=== PATIENT | male | born 1985 | race Caucasian/White ===

== ENCOUNTER 2016-03-25 12:49 | Emergency (ER) | payer BC ==
[2016-03-25] MEDS ORDERED: Ketorolac INJ* 60 MG/2 ML VIAL IM ONE (14:05)
[2016-03-25 15:01] VITALS: BP 156/94
--- NOTE | 2016-04-15 17:06 | ED ---
Back Pain - HPI Summary HPI Summary: Patient presents with low back pain after shoveling snow yesterday. He denies previous injury, N/T, incontinence of urine or stool. He has tried ibuprofen and heat without relief. No CP, SOB or OSORIO. - History of Current Complaint Chief Complaint: EDBackInjuryPain Stated Complaint: BACK PAIN Time Seen by Provider: 03/25/16 13:12 Hx Obtained From: Patient Onset/Duration: Gradual Onset Onset/Duration: Started Days Ago Timing: Constant Back Pain Location: Is Discrete @ - lwo back Severity Initially: Mild Severity Currently: Severe Pain Intensity: 7 Pain Scale Used: 0-10 Numeric Character: Aching, Stiffness Aggravating Symptom(s): Movement Alleviating Symptom(s): Nothing Associated Signs And Symptoms: Positive: Pain with Weight Bearing - Allergies/Home Medications Allergies/Adverse Reactions: Allergies Allergy/AdvReac Type Severity Reaction Status Date / Time No Known Drug Allergy Allergy Unknown Verified 03/25/16 14:52 Reaction Details PMH/Surg Hx/FS Hx/Imm Hx Previously Healthy: Yes Infectious Disease History: No Infectious Disease History: Denies: Traveled Outside the [place] in Last 30 Days - Family History Known Family History: Positive: None - Social History Occupation: Employed Full-time Lives: With Family Alcohol Use: Occasionally Substance Use Type: Reports: None Smoking Status (MU): Former Smoker Review of Systems Negative: Fever Negative: Chest Pain Negative: Shortness Of Breath Positive: Myalgia. Negative: Edema Negative: Bruising Negative: Weakness, Paresthesia, Numbness All Other Systems Reviewed And Are Negative: Yes Physical Exam Triage Information Reviewed: Yes Vital Signs On Initial Exam: Initial Vitals Temp Pulse Resp BP Pulse Ox 98.6 F 76 20 154/87 97 03/25/16 12:51 03/25/16 12:51 03/25/16 12:51 03/25/16 12:51 03/25/16 12:51 Vital Signs Reviewed: Yes Appearance: Positive: Well-Appearing, Well-Nourished, Pain Distress Skin: Positive: Warm, Skin Color Reflects Adequate Perfusion, Dry, Soft Head/Face: Positive: Normal Head/Face Inspection Eyes: Positive: EOMI, OBDULIA, Conjunctiva Clear ENT: Positive: Hearing grossly normal Respiratory/Lung Sounds: Positive: Breath Sounds Present Cardiovascular: Positive: RRR Abdomen Description: Positive: Nontender, Soft Musculoskeletal: Positive: Limited @ - back flexion, extension and rotation are limited due to pain, Pain @ - TTP right lumbar muscles. Negative: Edema Left, Edema Right Neurological: Positive: Sensory/Motor Intact, Alert, Oriented to Person Place, Time, NV Bundle Intact Distally, Abnormal Gait Psychiatric: Positive: Affect/Mood Appropriate AVPU Assessment: Alert Diagnostics - Vital Signs Vital Signs Temp Pulse Resp BP Pulse Ox 03/25/16 14:58 97.9 F 66 16 156/94 03/25/16 12:51 98.6 F 76 20 154/87 97 - Laboratory Lab Statement: Any lab studies that have been ordered have been reviewed, and results considered in the medical decision making process. Back Pain Course/Dx - Course Course Of Treatment: Patient's pain improved with Toradol. He will be discharged with muscle relaxers and instruction to follow-up with PCP. - Diagnoses Differential Diagnosis/HQI/PQRI: Positive: Aneurysm, Cauda Equina Syndrome, Compressive Cord Syndrome, Fracture, Herniated Disc, Strain, Sprain Provider Diagnoses: Low back strain Discharge - Discharge Plan Condition: Stable Disposition: HOME Prescriptions: Cyclobenzaprine TAB* [Flexeril TAB*] 10 mg PO TID PRN #15 tab PRN Reason: Pain Patient Education Materials: Low Back Strain (ED) Referrals: [facility] [Outside] Additional Instructions: Please begin taking 600mg of ibuprofen tomorrow afternoon, since you had an injection of Toradol today. Use the muscle relaxer to reduce muscle pain and/or spasm. Call the number provided to establish care with a primary care provider for follow-up care. Return to the emergency department if symptoms worsen.
== END 2016-03-25 14:58 | disposition home or self-care (01) ==
LOC: ED 12:49
DX: S39.012A Strain of muscle, fascia and tendon of lower back, initial encounter (principal); X50.9XXA Other and unspecified overexertion or strenuous movements or postures, initial encounter; X50.0XXA Overexertion from strenuous movement or load, initial encounter; Y93.H1 Activity, digging, shoveling and raking; Y92.9 Unspecified place or not applicable; Z87.891 Personal history of nicotine dependence
CPT/HCPCS: 99281; J1885

== ENCOUNTER 2016-11-10 09:35 | Emergency (ER) | payer BC ==
[2016-11-10] MEDS ORDERED: LORazepam TAB(*) 1 MG PO ONE ×2 (10:28→12:17)
[2016-11-10 10:54] LABS: Hematocrit 51 % (42-52); Hemoglobin 17.3 g/dl (14.0-18.0); Mean Corpuscular HGB Conc 34 g/dl (31-36); Mean Corpuscular Hemoglobin 31 pg (27-31); Mean Corpuscular Volume 92 fL (80-94); Mean Platelet Volume 7 um3 (7.4-10.4); Red Blood Count 5.52 10^6/ul (4.0-5.4); Red Cell Distribution Width 13 % (10.5-15); White Blood Count 4.4 10^3/ul (3.5-10.8)
[2016-11-10 11:05] LABS: ALT 24 U/L (7-52); AST 19 U/L (13-39); Albumin 4.6 g/dL (3.2-5.2); Alkaline Phosphatase 48 U/L (34-104); Anion Gap 10 mmol/L (2-11); BUN/Creatinine Ratio 12.8 (8-20); Blood Urea Nitrogen 10 mg/dL (6-24); CO2 Carbon Dioxide 23 mmol/L (22-32); Calcium 9.8 mg/dL (8.6-10.3); Chloride 101 mmol/L (101-111); EGFR African American 151.3 (>60); EGFR Non-African American 117.7 (>60); Globulin 3.3 g/dL (2-4); Glucose 91 mg/dL (70-100); Potassium 3.8 mmol/L (3.5-5.0); Sodium 134 mmol/L (133-145); Total Protein 7.9 g/dL (6.4-8.9)
[2016-11-10 11:47] LABS: Acetaminophen < 15 mcg/mL; Alcohol < 10 mg/dL (<10); Salicylate < 2.50 mg/dL (<30)
[2016-11-10 12:24] LABS: TSH (Thyroid Stimulating Horm) 0.67 mcIU/mL (0.34-5.60)
[2016-11-10 12:32] LABS: Urine Bilirubin Negative (Negative); Urine Glucose Negative (Negative); Urine Nitrite Negative (Negative)
[2016-11-10 12:50] LABS: Benzodiazepine Urine Screen None Detected (None Detect)
[2016-11-10 15:50] VITALS: BP 153/70
--- NOTE | 2016-11-11 07:53 | ED ---
Silvia Carvajal Thomas, scribed for Junior Dwyer MD on 11/10/16 at 1128 . Complex/Multi-Sys Presentation - HPI Summary HPI Summary: The patient is a 30 y/o M who presents to the ED with intermittent lightheadedness and dizziness that began a few days ago but was present when the patient woke up this AM, prompting a visit to the ED. He reports similar episodes of lightheadedness a few months ago; however, his current symptoms are worse in severity than before. He appears anxious and states I cannot calm myself down. He denies recent caffeine intake. He has a Hx of HTN and was told in the last few weeks by his PMD Dr. Becker to lose weight in order to manage his BP. Previously, the patient reports presenting to other emergency departments for this complaint. 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 He is accompanied by a coworker. - History Of Current Complaint Chief Complaint: EDGeneral Time Seen by Provider: 11/10/16 10:10 Hx Obtained From: Patient, Family/Doughmaker - co-worker is in the examination room Onset/Duration: Lasting Days - "a few days", Still Present, Worse Since - this AM Timing: Constant Severity Currently: Moderate Location: Negative Character: Unable To Describe - The patient appears anxious Aggravating Factor(s): None Alleviating Factor(s): None Associated Signs And Symptoms: Positive: Other - Lightheadedness, anxiety Related History: Similar Episode/Diagnosed As: - similar to other episodes of lightheadedness and anxiety - Allergies/Home Medications Allergies/Adverse Reactions: Allergies Allergy/AdvReac Type Severity Reaction Status Date / Time No Known Drug Allergy Allergy Unknown Verified 03/25/16 14:52 Reaction Details PMH/Surg Hx/FS Hx/Imm Hx Previously Healthy: No Endocrine/Hematology History: Denies: Hx Diabetes Cardiovascular History: Reports: Hx Hypertension - Surgical History Surgery Procedure, Year, and Place: Thumb surgery on hand Infectious Disease History: No Infectious Disease History: Denies: Traveled Outside the [place] in Last 30 Days - Family History Known Family History: Positive: Hypertension - Social History 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 Alcohol Use: Occasionally Hx Substance Use: No Substance Use Type: Reports: None Hx Tobacco Use: Yes Smoking Status (MU): Former Smoker Review of Systems Negative: Fever Neurological: Other - Lightheaded Positive: Other - Anxious All Other Systems Reviewed And Are Negative: Yes Physical Exam Triage Information Reviewed: Yes Vital Signs On Initial Exam: Initial Vitals Temp Pulse Resp BP Pulse Ox 97.3 F 88 20 160/106 99 11/10/16 09:45 11/10/16 09:45 11/10/16 09:45 11/10/16 09:45 11/10/16 09:45 Vital Signs Reviewed: Yes Appearance: Positive: Well-Appearing, No Pain Distress Skin: Positive: Warm, Skin Color Reflects Adequate Perfusion, Dry Head/Face: Positive: Normal Head/Face Inspection Eyes: Positive: Normal ENT: Positive: Normal ENT inspection Neck: Positive: Supple, Nontender Respiratory/Lung Sounds: Positive: Clear to Auscultation, Breath Sounds Present Cardiovascular: Positive: RRR Abdomen Description: Positive: Nontender, Soft Bowel Sounds: Positive: Present Musculoskeletal: Positive: Normal Neurological: Positive: Normal Psychiatric: Positive: Anxious - Vicki Coma Scale Coma Scale Total: 15 Diagnostics - Vital Signs Vital Signs Temp Pulse Resp BP Pulse Ox 11/10/16 10:45 20 11/10/16 09:45 97.3 F 88 20 160/106 99 - Laboratory Lab Results: Lab Results 11/10/16 11/10/16 Range/Units 10:39 10:39 WBC 4.4 (3.5-10.8) 10^3/ul RBC 5.52 H (4.0-5.4) 10^6/ul Hgb 17.3 (14.0-18.0) g/dl Hct 51 (42-52) % MCV 92 (80-94) fL MCH 31 (27-31) pg MCHC 34 (31-36) g/dl RDW 13 (10.5-15) % Plt Count 247 (150-450) 10^3/ul MPV 7 L (7.4-10.4) um3 Neut % (Auto) 58.7 (38-83) % Lymph % (Auto) 29.3 (25-47) % [place] % (Auto) 10.0 H (1-9) % Eos % (Auto) 1.1 (0-6) % Baso % (Auto) 0.9 (0-2) % Absolute Neuts (auto) 2.6 (1.5-7.7) 10^3/ul Absolute Lymphs (auto) 1.3 (1.0-4.8) 10^3/ul Absolute Monos (auto) 0.4 (0-0.8) 10^3/ul Absolute Eos (auto) 0.1 (0-0.6) 10^3/ul Absolute Basos (auto) 0 (0-0.2) 10^3/ul Absolute Nucleated RBC 0.01 10^3/ul Nucleated RBC % 0.1 Sodium 134 (133-145) mmol/L Potassium 3.8 (3.5-5.0) mmol/L Chloride 101 (101-111) mmol/L Carbon Dioxide 23 (22-32) mmol/L Anion Gap 10 (2-11) mmol/L BUN 10 (6-24) mg/dL Creatinine 0.78 (0.67-1.17) mg/dL Est GFR ( Amer) 151.3 (>60) Est GFR (Non-Af Amer) 117.7 (>60) BUN/Creatinine Ratio 12.8 (8-20) Glucose 91 (70-100) mg/dL Calcium 9.8 (8.6-10.3) mg/dL Total Bilirubin 1.20 H (0.2-1.0) mg/dL AST 19 (13-39) U/L ALT 24 (7-52) U/L Alkaline Phosphatase 48 (34-104) U/L Total Protein 7.9 (6.4-8.9) g/dL Albumin 4.6 (3.2-5.2) g/dL Globulin 3.3 (2-4) g/dL Albumin/Globulin Ratio 1.4 (1-3) TSH Pending Salicylates Pending Acetaminophen Pending Serum Alcohol Pending Result Diagrams: 11/10/16 10:39 11/10/16 10:39 Lab Statement: Any lab studies that have been ordered have been reviewed, and results considered in the medical decision making process. - EKG 12:48 Cardiac Rate: NL - 73 BPM EKG Interpretation: Sinus rhythm. No STEMI. Complex Multi-Symp Course/Dx Course Of Treatment: Mr. Mejia presented clearly suffering from anxiety which improved with anxiolytics. He requested a [facility] and they spoke with him about outpatient F/U. - Diagnoses Provider Diagnoses: Acute anxiety Discharge - Discharge Plan Condition: Stable Disposition: HOME Prescriptions: hydrOXYzine HCL TAB* [Atarax 25 MG TAB*] 25 mg PO QID PRN #20 tab PRN Reason: Allergy Symptoms Patient Education Materials: Panic Disorder (ED), Anxiety (ED), Panic Attack ( ED) Referrals: Marcos Becker MD [Primary Care Provider] - The documentation as recorded by the Silvia laureano Thomas accurately reflects the service I personally performed and the decisions made by me, Junior Dwyer MD.
== END 2016-11-10 17:53 | disposition home or self-care (01) ==
LOC: ED 09:35
DX: F41.9 Anxiety disorder, unspecified (principal); I10 Essential (primary) hypertension
CPT/HCPCS: 36415; 80053; 80307; 80320; 80329; 81003; 84443; 84484; 85025; 93005; 99284; A9270-GY; G0480

== ENCOUNTER 2017-08-05 08:07 | Emergency (ER) | payer BC ==
--- OUTSIDE RECORDS SUMMARY | 2017-08-05 08:33 | XMS REPORT ---
:1985 External Reference #:[id number] Author Organization [employer] Address [address] [address] Phone [phone] Care Team Providers Name Role Phone Marcos Becker III, MD Primary Care Physician Unavailable Payers Type Date Identification Numbers Payment Provider Subscriber Commercial Policy Number: [id number] [employer] Martinez Mejia PayID: [id number] [address] [address] [place] [address] Problems Date Description Provider Status Onset: 12/24/2016 Anxiety state Marcos Becker M.D. 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 Alprazolam Active Tablets 0.5mg 30tabs / to1 F41.9 Marcos [place] 017 tablet by Rosita, mouth up M.D. to twice a day as needed for anxiety sx Advil Active Capsules 200mg as needed Unknown 000 Sertraline HCL Hx Tablets 25mg 60tabs 1 by mouth F41.9 Marcos [place]aya 017 - every day Rosita, M.DJeannie 018 Hydroxyzine Hx Tablets 25mg 1-2 Unknown HCL 000 - tablets by mouth 017 every 6-8 hours as needed for anxiety. Immunizations CPT Code Status Date Vaccine Lot # [id number] Given 07/13/2017 Tdap - Tetanus/Diptheria/Acellular Pertussis [id number] Vital Signs Date Vital Result Comment 07/13/2017 Height 72 inches 6'0" Weight 248.25 lb Heart Rate 76 /min BP Systolic 118 mmHg BP Diastolic 78 mmHg BMI (Body Mass Index) 33.7 kg/m2 06/06/2017 Height 72 inches 6'0" Weight 244.00 lb Heart Rate 72 /min BP Systolic Sitting 120 mmHg BP Diastolic Sitting 80 mmHg Body Temperature 97.6 F O2 % BldC Oximetry 96 % BMI (Body Mass Index) 33.1 kg/m2 12/24/2016 Height 72 inches 6'0" Weight 235.00 lb Heart Rate 70 /min BP Systolic Sitting 118 mmHg BP Diastolic Sitting 86 mmHg Body Temperature 97.4 F O2 % BldC Oximetry 98 % BMI (Body Mass Index) 31.9 kg/m2 11/23/2016 Weight 230.00 lb Heart Rate 85 /min BP Systolic Sitting 153 mmHg BP Diastolic Sitting 98 mmHg Body Temperature 98.0 F Pain Level 7 headache right now O2 % BldC Oximetry 98 % 06/24/2016 Height 72 inches 6'0" Weight 240.00 lb Heart Rate 78 /min BP Systolic 140 mmHg BP Diastolic 90 mmHg Body Temperature 98.4 F O2 % BldC Oximetry 97 % BMI (Body Mass Index) 32.5 kg/m2 Results Test Date Test Result H/L Range Note Urinalysis Profile 11/10/2016 Urine Color Straw Urine Appearance Clear Urine Specific [place] 1.004 Low 1.010-1.030 Urine pH 8.0 5-9 Urine Urobilinogen Negative Negative Urine Ketones 1+ Negative Urine Protein Negative Negative Urine Leukocytes Negative Negative Urine Blood Negative Negative Urine Nitrite Negative Negative Urine Bilirubin Negative Negative Urine Glucose Negative Negative Urine Drug SCR ED & 11/10/2016 Amphetamine Ur Screen None Detected None Detect Pain Clinic Barbiturates Urine Screen None Detected None Detect Benzodiazepine Urine Screen None Detected None Detect Urine Cannabinoids Screen None Detected None Detect Urine Cocaine Screen None Detected None Detect Urine Opiates Screen None Detected None Detect Urine Phencyclidine Screen None Detected None Detect 1 CBC Auto Diff 11/10/2016 White Blood Count 4.4 10^3/uL 3.5-10.8 Red Blood Count 5.52 10^6/uL High 4.0-5.4 Hemoglobin 17.3 g/dL 14.0-18.0 Hematocrit 51 % 42-52 Mean Corpuscular Volume 92 fL 80-94 Mean Corpuscular Hemoglobin 31 pg 27-31 Mean Corpuscular HGB Conc 34 g/dL 31-36 Red Cell Distribution Width 13 % 10.5-15 Platelet Count 247 10^3/uL 150-450 Mean Platelet Volume 7 um3 Low 7.4-10.4 Abs Neutrophils 2.6 10^3/uL 1.5-7.7 Abs Lymphocytes 1.3 10^3/uL 1.0-4.8 Abs Monocytes 0.4 10^3/uL 0-0.8 Abs Eosinophils 0.1 10^3/uL 0-0.6 Abs Basophils 0 10^3/uL 0-0.2 Abs Nucleated RBC 0.01 10^3/uL Granulocyte % 58.7 % 38-83 Lymphocyte % 29.3 % 25-47 Monocyte % 10.0 % High 1-9 Eosinophil % 1.1 % 0-6 Basophil % 0.9 % 0-2 Nucleated Red Blood Cells % 0.1 Comp Metabolic Panel 11/10/2016 Sodium 134 mmol/L 133-145 Potassium 3.8 mmol/L 3.5-5.0 Chloride 101 mmol/L 101-111 Co2 Carbon Dioxide 23 mmol/L 22-32 Anion Gap 10 mmol/L 2-11 Glucose 91 mg/dL 70-100 Blood Urea Nitrogen 10 mg/dL 6-24 Creatinine 0.78 mg/dL 0.67-1.17 BUN/Creatinine Ratio 12.8 8-20 Calcium 9.8 mg/dL 8.6-10.3 Total Protein 7.9 g/dL 6.4-8.9 Albumin 4.6 g/dL 3.2-5.2 Globulin 3.3 g/dL 2-4 Albumin/Globulin Ratio 1.4 1-3 Total Bilirubin 1.20 mg/dL High 0.2-1.0 Alkaline Phosphatase 48 U/L 34-104 Alt 24 U/L 7-52 Ast 19 U/L 13-39 Egfr Non- 117.7 >60 Egfr 151.3 >60 2 Laboratory test finding 11/10/2016 Acetaminophen < 15 g/mL 3 Alcohol < 10 mg/dL <10 Salicylate < 2.50 mg/dL <30 TSH (Thyroid Stim Horm) 0.67 mcIU/mL 0.34-5.60 Troponin-I (TnI) 0.00 ng/mL <0.04 Comp Metabolic Panel 06/25/2016 Sodium 135 mmol/L 133-145 Potassium 4.4 mmol/L 3.5-5.0 Chloride 103 mmol/L 101-111 Co2 Carbon Dioxide 23 mmol/L 22-32 Anion Gap 9 mmol/L 2-11 Glucose 79 mg/dL 70-100 Blood Urea Nitrogen 9 mg/dL 6-24 Creatinine 0.78 mg/dL 0.67-1.17 BUN/Creatinine Ratio 11.5 8-20 Calcium 9.8 mg/dL 8.6-10.3 Total Protein 7.8 g/dL 6.4-8.9 Albumin 4.8 g/dL 3.2-5.2 Globulin 3.0 g/dL 2-4 Albumin/Globulin Ratio 1.6 1-3 Total Bilirubin 1.40 mg/dL High 0.2-1.0 Alkaline Phosphatase 50 U/L 34-104 Alt 39 U/L 7-52 Ast 26 U/L 13-39 Egfr Non- 117.7 >60 Egfr 151.3 >60 4 Laboratory test finding 06/25/2016 TSH (Thyroid Stim Horm) 1.00 mcIU/mL 0.34-5.60 Lipid Profile 06/25/2016 Triglycerides 84 mg/dL 5 (Trig/Chol/HDL) Cholesterol 203 mg/dL 6 HDL Cholesterol 48.6 mg/dL 7 LDL Cholesterol 138 mg/dL 8 Laboratory test finding 06/25/2016 Magnesium 2.1 mg/dL 1.9-2.7 1 The urine specimen was tested at the listed cutoffs: Drug class test level (ng/mL) Amphetamines 500 Barbiturates 200 Benzodiazepine metabolites 200 Cocaine metabolites 150 Cannabinoids 50 Opiates 300 Pcp 25 Specimen was received without chain of custody. Results should be used for medical purposes only. 2 Because ethnic data is not always readily available, this report includes an eGFR for both -Americans and non- Americans. The National Kidney Disease Education Program (NKDEP) does not endorse the use of the MDRD equation for patients that are not between the ages of 18 and 70, are , have extremes of body size, muscle mass, or nutritional status, or are non- or non-. According to the National Kidney Foundation, irrespective of diagnosis, the stage of the disease is based on the level of kidney function: Stage Description GFR(mL/min/1.73 m(2)) 1 Kidney damage with normal or decreased GFR 90 2 Kidney damage with mild decrease in GFR 60-89 3 Moderate decrease in GFR 30-59 4 Severe decrease in GFR 15-29 5 Kidney failure <15 (or dialysis) 3 Therapeutic concentration: <50 ug/mL Toxic concentration: >120 ug/mL 4 Because ethnic data is not always readily available, this report includes an eGFR for both -Americans and non- Americans. The National Kidney Disease Education Program (NKDEP) does not endorse the use of the MDRD equation for patients that are not between the ages of 18 and 70, are , have extremes of body size, muscle mass, or nutritional status, or are non- or non-. According to the National Kidney Foundation, irrespective of diagnosis, the stage of the disease is based on the level of kidney function: Stage Description GFR(mL/min/1.73 m(2)) 1 Kidney damage with normal or decreased GFR 90 2 Kidney damage with mild decrease in GFR 60-89 3 Moderate decrease in GFR 30-59 4 Severe decrease in GFR 15-29 5 Kidney failure <15 (or dialysis) 5 Desirable <150 Borderline high 150-199 High 200-499 Very High >500 6 Desirable <200 Borderline high 200-239 High >239 7 Low <40 Desirable: 40-60 High: >60 8 Desirable: <100 mg/dL Near Optimal: 100-129 mg/dL Borderline High: 130-159 mg/dL High: 160-189 mg/dL Very High: >189 mg/dL Procedures Date CPT Code Description Status 06/24/2016 22094 EKG Tracing & Interpretation Completed Encounters Type Date Location Provider CPT E/M Dx Office Visit 12/24/2016 9:00a [facility] Marcos Becker, [address]2043 F41.9 - Sukhi Wood R03.0 Office Visit 11/23/2016 3:00p [facility] Marcos Becker, 34592 F41.9 Babatunde Isbell M.D. Office Visit 06/24/2016 2:00p [facility] Marcos Becker, 15298 R42 - Sukhi Wood I47.9 Z13.220 R03.0 Plan of Care Future Appointment(s):01/12/2018 2:20 pm - Marcos Becker M.D. at [facility] - [id number]/06/2018 - Marcos Becker M.D.F41.9 Anxiety disorder, unspecifiedFollow up:annual exam in 6 months or prn
[2017-08-05] MEDS ORDERED: Metoprolol Tartrate IV* 1 MG/ML 5 ML VIAL IV ONE (08:55)
[2017-08-05] MEDS ORDERED: Acetaminophen TAB* 325 MG PO ONE (08:55)
[2017-08-05 09:41] LABS: Hematocrit 51 % (42-52); Hemoglobin 17.6 g/dl (14.0-18.0); Mean Corpuscular HGB Conc 35 g/dl (31-36); Mean Corpuscular Hemoglobin 32 pg (27-31); Mean Corpuscular Volume 93 fL (80-94); Mean Platelet Volume 6.9 um3 (7.4-10.4); Platelet Count 238 10^3/ul (150-450); Red Blood Count 5.46 10^6/ul (4.00-5.40); Red Cell Distribution Width 13 % (10.5-15)
--- NOTE | 2017-08-05 09:50 | RAD ---
Indication: Occipital headache. CT of the brain was performed without IV contrast. Ventricular structures are midline. No midline shift is noted. The extraction spaces are unremarkable. There is no evidence of intracranial mass or hemorrhage. No other high or low density lesions are identified. Mastoid air cells and paranasal sinuses are unremarkable. IMPRESSION: No intracranial mass or hemorrhage is noted.
[2017-08-05 10:00] LABS: EGFR Non-African American 116.9 (>60)
[2017-08-05] MEDS ORDERED: Metoprolol Tartrate TAB* 25 MG PO ONE (10:54)
[2017-08-05 12:57] VITALS: BP 140/100
--- NOTE | 2017-08-05 14:13 | ED ---
Pb Carvajal Jacob, scribed for Bucky Jones MD on 08/05/17 at 0842 . Dizziness - HPI Summary HPI Summary: Pt is a 31 y/o M w/ c/o sudden onset of dizziness and SOB on the way to work while driving. He states he felt, light in the chest, which was the first symptom to onset. He is experiencing a tightness in his head which began suddenly as he was getting out of the car and has been waxing and waning since. Currently rates head tightness pain as 7/10. He characterizes dizziness as, room was spinning. Pt denies staggering while walking. He has a history of panic attacks. Panic attacks normally feel a pressure in chest. He takes Xanax as needed and notes no different routine today or stress. He has not had caffeine in a year and has been staying hydrated. He had no breakfast and a couple of beers last night, but this is normal. He started Buspar two months ago with no recent dosage changes. He has FHx of HTN, but not PMHx of HTN. Fathers side of the family has Hx of CAD and father has prostate problems. - History Of Current Complaint Chief Complaint: EDDizziness Stated Complaint: LIGHT HEADED/DIZZINESS Time Seen by Provider: 08/05/17 08:11 Hx Obtained From: Patient Onset/Duration: Still Present Timing: Hours Character: Room Spinning, Dizzy Aggravating Factor(s): Nothing Alleviating Factor(s): Nothing Associated Signs And Symptoms: Positive: SOB, Other: - "head tightness" and "lightness in chest". Negative: Inability to Walk - Allergies/Home Medications Allergies/Adverse Reactions: Allergies Allergy/AdvReac Type Severity Reaction Status Date / Time No Known Allergies Allergy Verified 08/05/17 10:19 Home Medications: Home Medications ALPRAZolam TAB* [Xanax TAB*] 0.5 mg PO BID PRN 08/05/17 [History Confirmed 08/05] busPIRone TAB* [Buspar TAB *] 15 mg PO DAILY 08/05/17 [History Confirmed ] PMH/Surg Hx/FS Hx/Imm Hx Endocrine/Hematology History: Denies: Hx Diabetes Cardiovascular History: Reports: Hx Hypertension Psychiatric History: Denies: Hx Eating Disorder, Hx of Violent Episodes Against Others - Surgical History Surgery Procedure, Year, and Place: Thumb surgery on hand Infectious Disease History: No Infectious Disease History: Denies: Traveled Outside the [place] in Last 30 Days - Family History Known Family History: Positive: Hypertension - paternal side of family, Other - prostate problems in father Negative: Cardiac Disease - Social History Alcohol Use: Occasionally Hx Substance Use: No Substance Use Type: Reports: None Hx Tobacco Use: Yes Smoking Status (MU): Former Smoker Review of Systems Positive: Other - POSITIVE: high BP. Negative: Fever, Chills Negative: Erythema Negative: Sore Throat Positive: Other - POSITIVE: "chest lightness". Negative: Chest Pain Positive: Shortness Of Breath. Negative: Cough Negative: Abdominal Pain, Vomiting, Nausea Negative: dysuria, hematuria Negative: Myalgia, Edema Negative: Rash Neurological: Other - POSITIVE: "head tightness", dizziness, Negative: Weakness - No staggering while walking All Other Systems Reviewed And Are Negative: Yes Physical Exam - Summary Physical Exam Summary: Constitutional: Well-developed, Well-nourished, Alert. (-) Distressed Skin: Warm, Dry HENT: Normocephalic; Atraumatic Eyes: Conjunctiva normal Neck: Musculoskeletal ROM normal neck. (-) JVD, (-) Stridor, (-) Tracheal deviation Cardio: Rhythm regular, rate normal, Heart sounds normal; Intact distal pulses; The pedal pulses are 2+ and symmetric. Radial pulses are 2+ and symmetric. (-) Murmur Pulmonary/Chest wall: Effort normal. (-) Respiratory distress, (-) Wheezes, (-) Rales Abd: Soft. (-) Tenderness, (-) Distension, (-) Guarding, (-) Rebound Musculoskeletal: (-) Edema Lymph: (-) Cervical adenopathy Neuro: Alert, Oriented x3, Strength normal, Cranial nerves II-XII are grossly intact. (-) Dysmetria, (-) Nystagmus, (-) Ataxia by finger to nose testing, (-) Sensory deficit. Psych: Mood and affect Normal Triage Information Reviewed: Yes Vital Signs On Initial Exam: Initial Vitals Temp Pulse Resp BP Pulse Ox 97.9 F 87 18 170/105 97 08/05/17 08:08 08/05/17 08:08 08/05/17 08:08 08/05/17 08:08 08/05/17 08:08 Vital Signs Reviewed: Yes - [place] Coma Scale Best Eye Response: 4 - Spontaneous Best Motor Response: 6 - Obeys Commands Best Verbal Response: 5 - Oriented Coma Scale Total: 15 Diagnostics - Vital Signs Vital Signs Temp Pulse Resp BP Pulse Ox 08/05/17 08:08 97.9 F 87 18 170/105 97 - Laboratory Result Diagrams: 08/05/17 09:28 08/05/17 09:28 Lab Statement: Any lab studies that have been ordered have been reviewed, and results considered in the medical decision making process. - CT CT Head CT Interpretation: No Acute Changes CT Interpretation Completed By: Radiologist - No intracranial mass or hemorrhage is noted. This report was reviewd by ED physician. - EKG 0900 Cardiac Rate: NL - rate is 81 BPM EKG Rhythm: Sinus Rhythm Re-Evaluation - Re-Evaluation First Eval Re-Evaluation Time: 08:53 Comment: Pt reports that he is still having pressure in head, localized to the back of the head. We will do a CT head, put in an IV, and give Pt Tylenol and Lopressor. Dizzy Course/Dx - Course Assessment/Plan: Pt is a 31 y/o M w/ c/o sudden onset of dizziness, described as room-spinning, and SOB on the way to work while driving. He states he felt, light in the chest, which was the first symptom to onset. He is experiencing a tightness in his head, currently 7/10, which began suddenly and has been waxing and waning since. Pt denies staggering while walking. He has a history of panic attacks. He takes Xanax as needed and notes no different routine today or stress. During ED course, pt was given 650 mg PO of Tylenol, Lopressor 25 mg PO , and Lopressor 5 mg IV. Bloodwork, CT Head, and EKG were done. CT Head and EKG were normal. All symptoms resolved w/ anti-hypertensives. Pt was diagnosed w/ hypertensive crisis and discharged to home. - Diagnoses Provider Diagnoses: Hypertensive crisis Discharge - Sign-Out/Discharge Documenting (check all that apply): Discharge/Admit/Transfer - discharge - Discharge Plan Condition: Stable Disposition: HOME Prescriptions: Metoprolol Tartrate TAB* [Lopressor TAB*] 25 mg PO BID #14 tab Patient Education Materials: Hypertensive Crisis (ED) Referrals: [facility] [Outside] - 08/08/17 Marcos Becker MD [Primary Care Provider] - 08/08/17 Additional Instructions: RETURN TO ED FOR ANY CHANGING OR WORSENING SYMPTOMS. The documentation as recorded by the Pb laureano Jacob accurately reflects the service I personally performed and the decisions made by , Bucky Jones MD.
== END 2017-08-05 12:53 | disposition home or self-care (01) ==
LOC: ED 08:07
DX: I16.9 Hypertensive crisis, unspecified (principal); Z87.891 Personal history of nicotine dependence; Z82.49 Family history of ischemic heart disease and other diseases of the circulatory system; R51 Headache
CPT/HCPCS: 36415; 70450; 80053; 84484; 85027; 93005; 96374; 99283; A9270-GY; J3490